=== PATIENT | male | born 1935 | race Caucasian/White ===

== ENCOUNTER 2021-10-03 12:15 | Day surgery (SDC) | payer MEDICARE, OTHER ==
[2021-09-29 09:14] LABS: BASOPHILS # (AUTO) 0.1 X10'3 (0-0.2); BASOPHILS % (AUTO) 0.6 % (0-1); EOSINOPHILS # (AUTO) 0.3 X10'3 (0-0.9); EOSINOPHILS % (AUTO) 3.5 % (0-6); HEMOGLOBIN 15.7 g/dl (14.0-17.9); LYMPHOCYTES # (AUTO) 1.6 X10'3 (1.1-4.8); LYMPHOCYTES % (AUTO) 18.7 % (21-51); MEAN CORPUSCULAR HEMOGLOBIN 30.1 PG (27.0-31.0); MEAN CORPUSCULAR HGB CONC 34.1 g/dL (33.0-36.5); MEAN CORPUSCULAR VOLUME 88.2 FL (78-98); MEAN PLATELET VOLUME 7.8 FL (7.4-10.4); MONOCYTES # (AUTO) 1.1 X10'3 (0-0.9); MONOCYTES % (AUTO) 12.4 % (2-12); NEUTROPHILS # (AUTO) 5.7 X10'3 (1.8-7.7); NEUTROPHILS % (AUTO) 64.8 % (42-75); PLATELET COUNT 253 X10'3 (140-440); RED BLOOD COUNT 5.21 X10'6 (4.70-6.10); RED CELL DISTRIBUTION WIDTH 12.9 % (11.5-14.5); WHITE BLOOD COUNT 8.8 X10'3 (4.5-11.0)
[2021-09-29 09:27] LABS: APTT 26 SECONDS (22-32)
[2021-09-29 09:33] LABS: ALBUMIN 3.2 G/DL (3.4-5.0); ANION GAP 9 (8-16); BLOOD UREA NITROGEN 18 MG/DL (7-18); BUN/CREATININE RATIO 15.4 (5.4-32.0); CALCIUM 8.8 MG/DL (8.5-10.1); CHLORIDE 107 MMOL/L (99-107); CHOL/HDL RATIO 2.8 (0.00-4.99); CHOLESTEROL 159 MG/DL (0-200); CREATININE 1.17 MG/DL (0.60-1.10); GLUCOSE 100 MG/DL (70-104); HDL CHOLESTEROL 56 MG/DL (35-60); LDL CHOLESTEROL 83 MG/DL (50-100); POTASSIUM 4.7 MMOL/L (3.5-5.1); SODIUM 141 MMOL/L (135-145); TOTAL CARBON DIOXIDE 25.5 MMOL/L (24-32); TRIGLYCERIDES 117 MG/DL (20-135); eGFR 59 ML/MIN
[~2021-10-03] VITALS: Ht 182.9 cm; Wt 104.7 kg
[2021-10-03] VITALS (9 sets, daily range): BP systolic 119–169; BP diastolic 48–120
[2021-10-03] MEDS ORDERED: diphenhydrAMINE 25mg capsule PO PRN (12:35)
[2021-10-03] MEDS ORDERED: normal saline 1,000 ML IV SCH (12:35)
[2021-10-03] MEDS ORDERED: LORazepam 0.5 MG tablet PO PRN (12:35)
[2021-10-03] MEDS ORDERED: METO-395 PO (13:25)
[2021-10-03] MEDS ORDERED: SIMV-45 PO (13:25)
[2021-10-03] MEDS ORDERED: ASPI-1265 PO (13:25)
[2021-10-03] MEDS ORDERED: IRBE300T18 PO ×2 (13:25→13:31)
[2021-10-03] MEDS ORDERED: MULT-1085 PO (13:26)
[2021-10-03] MEDS ORDERED: nitroGLYCERIN-Tridil 50MG/D5W 250 ML IV ONE (14:32)
[2021-10-03] MEDS ORDERED: verapamil 2.5 mg/ml inj IV ONE (14:32)
[2021-10-03] MEDS ORDERED: iohexol 350MG/ML 100ml bottle IV ONE ×4 (14:32→15:39)
[2021-10-03] MEDS ORDERED: fentaNYL/PF 50MCG/1 ML 2ML syringe ONE (14:32)
[2021-10-03] MEDS ORDERED: heparin 1,000unit/ml 10ml vial 10 ML ONE (14:32)
[2021-10-03] MEDS ORDERED: midazolam 1 mg/ML 2ml injection ONE (14:32)
--- NOTE | 2021-10-03 14:45 | NUR ---
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 Received bedside report from Ted. LEIJA. Vital signs stable. Vasc band to right wrist in place with no signs of bleeding or hematoma. Radial pulse intact.
[2021-10-03] MEDS ORDERED: aspirin 325mg tablet ONE (15:27)
[2021-10-03] MEDS ORDERED: clopidogrel 300mg tablet ONE (15:27)
[2021-10-03] MEDS ORDERED: ondansetron/PF 4mg/2ml inj IV PRN (16:25)
== END 2021-10-03 18:30 | disposition home or self-care (01) ==
LOC: SSTAY O 12:15
PROVIDERS: ATTEND Internal Medicine Interventional Cardiology
DX: R94.39 Abnormal result of other cardiovascular function study (principal); I25.10 Atherosclerotic heart disease of native coronary artery without angina pectoris; I10 Essential (primary) hypertension; I35.0 Nonrheumatic aortic (valve) stenosis; I47.2 Ventricular tachycardia; E78.5 Hyperlipidemia, unspecified; Z95.0 Presence of cardiac pacemaker; Z79.899 Other long term (current) drug therapy; Z79.82 Long term (current) use of aspirin; Z88.0 Allergy status to penicillin; Z88.8 Allergy status to other drugs, medicaments and biological substances; Z87.891 Personal history of nicotine dependence; Z79.01 Long term (current) use of anticoagulants
CPT/HCPCS: 36415; 80048; 80061; 85025; 85610; 85730; 93005; 93458; 93571; 99152; 99153; C1725; C1751; C1769; C1874; C1894; C9600; J1644; J2250; J3010; J3490; J7030; Q0163; Q9967; A4620; A6258; A6402

== ENCOUNTER 2023-01-11 06:34 | Day surgery (SDC) | payer MEDICARE, OTHER ==
[~2023-01-11] VITALS: Ht 182.9 cm; Wt 100.7 kg
[2023-01-11] VITALS (9 sets, daily range): BP systolic 114–132; BP diastolic 48–66; PULSE 45–87; RESP 14–18; TEMP 97.7; O2SAT 93–97
[~2023-01-11 06:34] MED LIST: ASPI-1265 PO; IRBE300T18 PO; METO-395 PO; MULT-1085 PO; SIMV-45 PO
[2023-01-11] MEDS ORDERED: vancomycin 1,500 MG in NS 300ml IV soln IV ONE (07:08)
[2023-01-11] MEDS ORDERED: clindamycin-Cleocin 900mg/D5W 50 ML IV ONE (07:08)
[2023-01-11] MEDS ORDERED: normal saline 1000ml 1,000 ML IV SCH ×2 (07:15→11:40)
[2023-01-11] MEDS ORDERED: SPIR25TA5 PO (07:26)
[2023-01-11] MEDS ORDERED: POTA15TA18 PO (07:26)
[2023-01-11] MEDS ORDERED: LEVO25TA7 PO (07:26)
[2023-01-11] MEDS ORDERED: FURO40TA4 PO (07:26)
[2023-01-11] MEDS ORDERED: EMPA10TA PO (07:26)
[2023-01-11] MEDS ORDERED: WARF-55 PO (07:26)
[2023-01-11 07:48] LABS: BASOPHILS # (AUTO) 0.1 X10'3 (0-0.2); BASOPHILS % (AUTO) 0.9 % (0-1); EOSINOPHILS # (AUTO) 0.3 X10'3 (0-0.9); EOSINOPHILS % (AUTO) 4.9 % (0-6); HEMATOCRIT 46.4 % (42.0-52.0); HEMOGLOBIN 15.8 g/dl (14.0-17.9); LYMPHOCYTES # (AUTO) 1.8 X10'3 (1.1-4.8); LYMPHOCYTES % (AUTO) 26.3 % (21-51); MEAN CORPUSCULAR HEMOGLOBIN 31.2 PG (27.0-31.0); MEAN CORPUSCULAR VOLUME 91.8 FL (78-98); MEAN PLATELET VOLUME 8.1 FL (7.4-10.4); MONOCYTES # (AUTO) 0.9 X10'3 (0-0.9); NEUTROPHILS # (AUTO) 3.7 X10'3 (1.8-7.7); NEUTROPHILS % (AUTO) 54.9 % (42-75); PLATELET COUNT 228 X10'3 (140-440); RED BLOOD COUNT 5.05 X10'6 (4.70-6.10); RED CELL DISTRIBUTION WIDTH 13.8 % (11.5-14.5); WHITE BLOOD COUNT 6.7 X10'3 (4.5-11.0)
[2023-01-11 07:55] LABS: ALBUMIN 3.5 G/DL (3.4-5.0); ANION GAP 7 (8-16); BLOOD UREA NITROGEN 50 MG/DL (7-18); BUN/CREATININE RATIO 25.6 (10.0-20.0); CALCIUM 9.3 MG/DL (8.5-10.1); CHLORIDE 104 MMOL/L (99-107); CREATININE 1.95 MG/DL (0.60-1.10); MAGNESIUM 2.6 MG/DL (1.5-2.4); POTASSIUM 5.1 MMOL/L (3.5-5.1); SODIUM 134 MMOL/L (135-145); TOTAL CARBON DIOXIDE 22.7 MMOL/L (24-32); eCRCL 30 ML/MIN; eGFR 33 ML/MIN
[2023-01-11 07:58] LABS: INR 1.2 INR; PROTHROMBIN TIME 12.4 SECONDS (9.0-12.0)
[2023-01-11 08:00] LABS: GLUCOSE 85 MG/DL (70-104)
[2023-01-11] MEDS ORDERED: fentaNYL/PF 50MCG/1 ML 2ML syringe ONE (08:46)
[2023-01-11] MEDS ORDERED: midazolam 1 mg/ML 2ml injection ONE ×4 (08:46→10:16)
[2023-01-11] MEDS ORDERED: LIDOCAINE 2%/EPI 1:100,000 inj. Multi-dose 20 ML VIAL ONE (08:47)
[2023-01-11] MEDS ORDERED: iohexol 350 MG/ML 50ML vial IV ONE ×2 (08:47→08:50)
[2023-01-11] MEDS ORDERED: vancomycin 1,000mg inj ONE (09:16)
[2023-01-11] MEDS ORDERED: proCHLORperazine 10 MG/2 ml inj ONE (09:43)
[2023-01-11] MEDS ORDERED: HYDROcodone/acetaminophen 5mg/325mg tablet PO PRN (11:40)
[2023-01-11] MEDS ORDERED: HYDROcodone/acetaminophen 10/325mg tab PO PRN (11:40)
== END 2023-01-11 13:35 | disposition home or self-care (01) ==
LOC: SSTAY O 06:34
PROVIDERS: ATTEND Internal Medicine Cardiovascular Disease
DX: Z45.02 Encounter for adjustment and management of automatic implantable cardiac defibrillator (principal); I42.0 Dilated cardiomyopathy; I11.0 Hypertensive heart disease with heart failure; I50.22 Chronic systolic (congestive) heart failure; I25.118 Atherosclerotic heart disease of native coronary artery with other forms of angina pectoris; I25.5 Ischemic cardiomyopathy; I48.0 Paroxysmal atrial fibrillation; E03.9 Hypothyroidism, unspecified; E78.5 Hyperlipidemia, unspecified; Z95.5 Presence of coronary angioplasty implant and graft; Z79.899 Other long term (current) drug therapy; Z96.653 Presence of artificial knee joint, bilateral; Z98.890 Other specified postprocedural states; Z88.0 Allergy status to penicillin; Z88.8 Allergy status to other drugs, medicaments and biological substances; Z72.89 Other problems related to lifestyle; Z87.891 Personal history of nicotine dependence
CPT/HCPCS: 33225; 33233; 33234; 33249; 36415; 71045; 80048; 83735; 85025; 85610; 93005; 93641; 99152; 99153; C1882; C1895; C1900; J0780; J2250; J3010; J3370; J7030; Q9967; 33216; 33221; C1769